=== PATIENT | male | born 1940 | race Caucasian/White ===

== ENCOUNTER → 2017-11-13 | Day surgery (SDC) | payer MEDICARE ==
[~2017-11-13] MED LIST: Glycopyrrolate 0.2 MG/ML SDV IVPUSH ONE; Lactated Ringers 1,000 ML IV SCH; Propofol 200 MG/20 ML SDV IV ONE
--- NOTE | 2017-11-16 10:34 | OR ---
DATE OF OPERATION: 11/13/2017 PREOPERATIVE DIAGNOSIS: 1. GASTROESOPHAGEAL REFLUX DISEASE. 2. FOLLOWUP POLYPS. POSTOPERATIVE DIAGNOSIS: 1. GASTROESOPHAGEAL REFLUX DISEASE. 2. FOLLOWUP POLYPS. SURGEON: Garth Perez MD PROCEDURE: 1. ESOPHAGOGASTRODUODENOSCOPY WITH BIOPSIES X2, BHAVESH. 2. FULL-LENGTH COLONOSCOPY WITH SNARE POLYPECTOMY X1. ANESTHESIA: BISQUE KILN PLACER. COMPLICATIONS: None. SPECIMEN: 1. Antral biopsy x2. 2. BHAVESH. 3. Sigmoid polyp. FINDINGS: 1. Full-length EGD. 2. Chronic antral gastritis without ulceration. 3. Small hiatal hernia with reflux. No esophagitis or Puente's changes. 4. Full-length colonoscopy. 5. [id number] sigmoid diverticulosis. 6. Tubular adenoma sigmoid less than 0.5 cm. RECOMMENDATIONS: 1. Followup colonoscopy in 5 years. 2. Medical followup for patient's reflux. INDICATIONS: The patient has been having some occasional reflux, and he is due for routine colonoscopy. Dr. Gross sent him for a scope. DESCRIPTION OF PROCEDURE: The patient was prepped and draped, placed in the left lateral decubitus position. A lubricated Olympus gastroscope was inserted over a bit and advanced to cricopharyngeus area and easily intubated in the esophagus. Esophageal lining was benign in its entire course. The Z-line was crisp around 38 and 0.5 cm. Small hiatal hernia was present with some minimal spontaneous reflux. No distal esophagitis, stricturing, ulceration, or Puente's changes seen. The scope was advanced into the stomach through the pylorus into the second portion of the duodenum. This and the duodenal bulb were benign. The scope was brought back into the stomach and retroflexed. The upper fundus and cardia were completely unremarkable. Upon straightening, I could find no signs of any polyps, lesions, or ulcerations in the stomach. The antrum had some chronic gastritis appearance without any acute ulcerations or erosions. Two biopsies were taken along with a BHAVESH test. Air was suctioned from the stomach and the scope removed without complication. A lubricated Olympus colonoscope was then inserted and easily advanced to the cecum. Direct visualization of the ileocecal valve and appendiceal orifice was accomplished. The bowel prep was excellent. Upon withdrawal of the scope, the right transverse and descending colons were unremarkable. The patient has prominent diverticula in the sigmoid and rectosigmoid area, mild to moderate in severity. One small polyp was found around 40 cm and removed with a snare and suctioned a polyp trap #1. It is typical tubular adenoma. The rectal vault was unremarkable. Retroflexion showed no perineal lesions. Air was suctioned. The scope was removed without complication. CHRIS /[id number]
== END ==
LOC: CC.SDS 09:03
PROVIDERS: ATTEND Family Medicine
DX: D12.5 Benign neoplasm of sigmoid colon (principal); K29.50 Unspecified chronic gastritis without bleeding; K57.30 Diverticulosis of large intestine without perforation or abscess without bleeding; K44.9 Diaphragmatic hernia without obstruction or gangrene; K21.9 Gastro-esophageal reflux disease without esophagitis; I10 Essential (primary) hypertension; I25.10 Atherosclerotic heart disease of native coronary artery without angina pectoris; E78.5 Hyperlipidemia, unspecified; E55.9 Vitamin D deficiency, unspecified; N40.0 Benign prostatic hyperplasia without lower urinary tract symptoms; Z86.010 Personal history of colon polyps; Z87.891 Personal history of nicotine dependence; Z79.82 Long term (current) use of aspirin; Z79.899 Other long term (current) drug therapy
CPT/HCPCS: 87081; 88305; 88342; J2704; J7120

== ENCOUNTER 2021-01-10 16:15 | Observation (INO) | payer MEDICARE, OTHER ==
[2021-01-10] MEDS ORDERED: Sodium Chloride 0.9% 10 ML Syringe FLUSH PRN (16:44)
[2021-01-10 17:07] LABS: CHLORIDE,CL 103 mEq/L (98-106); SODIUM,NA 142 mEq/L (136-145)
--- NOTE | 2021-01-10 17:09 | EDM.PDOC ---
ED HPI GENERAL MEDICAL PROBLEM - General Chief Complaint: General Stated Complaint: WEAKNESS OF KNEES/DRY HEAVES/DIZZINESS Time Seen by Provider: 01/10/21 16:30 Source of Information: Reports: Patient History Limitations: Reports: No Limitations - History of Present Illness INITIAL COMMENTS - FREE TEXT/NARRATIVE: States that he was feeling fine until this morning when he started to get dizzy and then dry heaving and now feels like he is tingling all over. He relates he has had these in the past but it has been awhile. He states that he has not had any unilateral weakness. No facial drooping noted. Feels better if he is just laying still. With movement he does get the dry heaves. He relates that he hasn't been able to get anything to stay down all after noon. He did feel unsteady on his feet so did come in by EMS to be evaluated. Onset: Today Location: Reports: Head Associated Symptoms: Reports: Nausea/Vomiting - Related Data Allergies Allergy/AdvReac Type Severity Reaction Status Date / Time No Known Allergies Allergy Verified 11/13/17 09:22 Home Meds: Home Meds Aspirin [Adult Low Dose Aspirin EC] 81 mg PO DAILY 11/09/17 [History] Cholecalciferol (Vitamin D3) [Vitamin D3] 3,000 unit PO DAILY 11/09/17 [History] Cyanocobalamin (Vitamin B12) [Vitamin B12] 1,000 mcg PO DAILY 11/09/17 [History] Metoprolol Tartrate 25 mg PO DAILY 11/09/17 [History] Multivitamin [Daily Multiple Vitamin] 1 tab PO DAILY 11/09/17 [History] Omeprazole 20 mg PO DAILY 11/09/17 [History] Rosuvastatin Calcium 10 mg PO DAILY 11/09/17 [History] Past Medical History Cardiovascular History: Reports: CAD, Hypertension - Past Surgical History Cardiovascular Surgical History: Reports: Coronary Artery Bypass GI Surgical History: Reports: Hernia Repair/Other, Other (See Below) (colon surgery) Social & Family History - Tobacco Use Tobacco Use Status *Q: Never Tobacco User ED ROS GENERAL - Review of Systems Review Of Systems: See Below Constitutional: Reports: Weakness. Denies: Fever, Chills HEENT: Reports: No Symptoms Respiratory: Reports: No Symptoms. Denies: Cough Cardiovascular: Denies: Chest Pain GI/Abdominal: Reports: Nausea (dry heaves) Neurological: Reports: Dizziness, Tingling (to extremities.). Denies: Headache ED EXAM, GENERAL - Physical Exam Exam: See Below Exam Limited By: No Limitations General Appearance: Alert, WD/WN, Mild Distress Eye Exam: Bilateral Eye: PERRL Ear Exam: Bilateral Ear: Canal Normal, TM normal Nose: Normal Inspection Throat/Mouth: Normal Inspection, Normal Oropharynx, Normal Voice Head: Atraumatic, Normocephalic Neck: Normal Inspection, Supple, Non-Tender Respiratory/Chest: No Respiratory Distress, Lungs Clear, Normal Breath Sounds Cardiovascular: Normal Peripheral Pulses, Regular Rate, Rhythm, No Edema Back Exam: Normal Inspection Extremities: No Pedal Edema, Normal Capillary Refill Neurological: Alert, Oriented, CN II-XII Intact, Normal Cognition Psychiatric: Normal Affect, Normal Mood Skin Exam: Warm, Dry, Intact Course - Orders/Labs/Meds Orders: Active Orders 24 hr Category Date Time Status Peripheral IV Care [RC] . DIRECTED Care 01/10/21 16:44 Active Head wo Cont [CT] Stat Exams 01/10/21 16:38 Taken UA RFX EMERSON AND CULT IF INDIC [URIN] Urgent Lab 01/10/21 16:39 Ordered Aspirin [Adult Low Dose Aspirin EC] Med 01/11/21 08:00 Active 81 mg PO DAILY Cholecalciferol (Vitamin D3) [Vitamin D3] Med 01/11/21 08:00 Active 3,000 unit PO DAILY Cyanocobalamin (Vitamin B12) [Vitamin B12] Med 01/11/21 08:00 Active 1,000 mcg PO DAILY Metoprolol Tartrate [Metoprolol Tartrate] Med 01/11/21 08:00 Active 25 mg PO DAILY Multivitamin [Daily Multiple Vitamin] Med 01/11/21 08:00 Active 1 tab PO DAILY Omeprazole [Omeprazole] Med 01/11/21 08:00 Active 20 mg PO DAILY Ondansetron [Zofran] Med 01/10/21 17:01 Active 4 mg IVPUSH Q6H PRN Rosuvastatin Calcium [Rosuvastatin Calcium] Med 01/11/21 08:00 Active 10 mg PO DAILY Sodium Chloride 0.9% [Saline Flush] Med 01/10/21 16:44 Active 10 ml FLUSH ASDIRECTED PRN Peripheral IV Insertion Adult [OM.PC] Routine Oth 01/10/21 16:44 Ordered Medication Orders Non-Formulary Medication (Metoprolol Tartrate [Metoprolol Tartrate]) 25 mg PO DAILY [facility] Non-Formulary Medication (Rosuvastatin Calcium [Rosuvastatin Calcium]) 10 mg PO DAILY [facility] Non-Formulary Medication (Omeprazole [Omeprazole]) 20 mg PO DAILY [facility] Non-Formulary Medication (Aspirin [Adult Low Dose Aspirin Ec]) 81 mg PO DAILY [facility] Non-Formulary Medication (Cholecalciferol (Vitamin D3) [Vitamin D3]) 3,000 unit PO DAILY [facility] Non-Formulary Medication (Cyanocobalamin (Vitamin B12) [Vitamin B12]) 1,000 mcg PO DAILY [facility] Non-Formulary Medication (Multivitamin [Daily Multiple Vitamin]) 1 tab PO DAILY [facility] Ondansetron HCl (Ondansetron 4 Mg/2 Ml Sdv) 4 mg IVPUSH Q6H PRN PRN Reason: Nausea Last Admin: 01/10/21 17:13 Dose: 4 mg Documented by: GOMEZ Sodium Chloride (Sodium Chloride 0.9% 10 Ml Syringe) 10 ml FLUSH ASDIRECTED PRN PRN Reason: Keep Vein Open Labs: Laboratory Tests 01/10/21 01/10/21 Range/Units 16:32 16:34 WBC 12.7 H (4.0-11.0) 10^3/uL RBC 4.91 (4.50-6.00) x10^6/uL Hgb 14.9 (14.0-18.0) g/dL Hct 43.7 (42.0-52.0) % MCV 89.0 (83.0-97.0) fL MCH 30.3 (27.0-32.0) pg MCHC 34.1 (32.0-36.0) g/dL RDW Coeff of Rosita 12.4 (11.0-15.0) % Plt Count 267 (150-400) 10^3/uL Immature Gran % (Auto) 0.2 (0.0-4.9) % Neut % (Auto) 87.0 H (41-71) % Lymph % (Auto) 9.2 L (24-44) % [place] % (Auto) 3.2 (0-10) % Eos % (Auto) 0.2 (0-6) % Baso % (Auto) 0.2 (0-1) % Neut # (Auto) 11.00 H (1.80-8.00) x10^3/uL Lymph # (Auto) 1.17 (0.60-5.00) 10^3/uL [place] # (Auto) 0.41 (0.00-1.50) 10^3/uL Eos # (Auto) 0.03 (0.00-1.50) 10^3/uL Baso # (Auto) 0.03 (0.00-0.50) 10^3/uL Immature Gran # (Auto) 0.02 (0.00-0.49) 10^3/uL Sodium 142 (136-145) mEq/L Potassium 3.4 L (3.5-5.0) mEq/L Chloride 103 (98-106) mEq/L Carbon Dioxide 23 (21-32) mmol/L BUN 23 H (7-18) mg/dL Creatinine 1.2 (0.7-1.3) mg/dL Est Cr Clr Drug Dosing TNP Estimated GFR (MDRD) 58 L (>=60) mL/min Glucose 156 H D (75-99) mg/dL Calcium 8.8 (8.4-10.1) mg/dL Total Bilirubin 0.6 (0.0-1.0) mg/dL AST 22 (15-37) U/L ALT 31 (12-78) U/L Alkaline Phosphatase 59 (46-116) U/L Creatine Kinase 66 (35-232) U/L Troponin I < 0.017 (0.00-0.06) ng/mL NT-Pro-B Natriuret Pep 244 (0-1000) pg/mL Total Protein 7.5 (6.4-8.2) g/dL Albumin 4.0 (3.4-5.0) g/dL Meds: Medications Generic Name Dose Route Start Last Admin Trade Name Freq PRN Reason Stop Dose Admin Non-Formulary Medication 25 mg 01/11/21 08:00 Metoprolol Tartrate [Metoprolol Tartrate] PO DAILY [facility] Non-Formulary Medication 10 mg 01/11/21 08:00 Rosuvastatin Calcium [Rosuvastatin Calcium] PO DAILY [facility] Non-Formulary Medication 20 mg 01/11/21 08:00 Omeprazole [Omeprazole] PO DAILY [facility] Non-Formulary Medication 81 mg 01/11/21 08:00 Aspirin [Adult Low Dose Aspirin Ec] PO DAILY [facility] Non-Formulary Medication 3,000 unit 01/11/21 08:00 Cholecalciferol (Vitamin D3) [Vitamin D3] PO DAILY [facility] Non-Formulary Medication 1,000 mcg 01/11/21 08:00 Cyanocobalamin (Vitamin B12) [Vitamin B12] PO DAILY [facility] Non-Formulary Medication 1 tab 01/11/21 08:00 Multivitamin [Daily Multiple Vitamin] PO DAILY [facility] Ondansetron HCl 4 mg 01/10/21 17:01 01/10/21 17:13 Ondansetron 4 Mg/2 Ml Sdv IVPUSH 4 mg Q6H PRN Administration Nausea Sodium Chloride 10 ml 01/10/21 16:44 Sodium Chloride 0.9% 10 Ml Syringe FLUSH ASDIRECTED PRN Keep Vein Open - Re-Assessments/Exams Free Text/Narrative Re-Assessment/Exam: 01/10/21 17:15 Dizziness is improved when laying still. Did have dry heaves when he sat up and went to CT scan but that has improved. He states that the tingling he had in his extremities when this started has resolved. CT of head is negative. Departure - Departure Time of Disposition: 17:36 Disposition: Refer to Observation Condition: Fair Clinical Impression: Dizziness, Dry heaves - Discharge Information *PRESCRIPTION DRUG MONITORING PROGRAM REVIEWED*: Not Applicable *COPY OF PRESCRIPTION DRUG MONITORING REPORT IN PATIENT SAWYER: Not Applicable Forms: ED Department Discharge - Problem List & Annotations (1) Dizziness SNOMED Code(s): 185851558, 784530663 Code(s): R42 - DIZZINESS AND GIDDINESS Status: Acute Priority: High (2) Dry heaves SNOMED Code(s): 12186007 Code(s): R11.10 - VOMITING, UNSPECIFIED Status: Acute Priority: High - Problem List Review Problem List Initiated/Reviewed/Updated: Yes - My Orders Last 24 Hours: My Active Orders 01/10/21 16:38 Head wo Cont [CT] Stat 01/10/21 16:39 UA RFX EMERSON AND CULT IF INDIC [URIN] Urgent 01/10/21 16:44 Peripheral IV Care [RC] . DIRECTED Sodium Chloride 0.9% [Saline Flush] 10 ml FLUSH ASDIRECTED PRN Peripheral IV Insertion Adult [OM.PC] Routine 01/10/21 17:01 Ondansetron [Zofran] 4 mg IVPUSH Q6H PRN 01/11/21 08:00 Aspirin [Adult Low Dose Aspirin EC] 81 mg PO DAILY Cholecalciferol (Vitamin D3) [Vitamin D3] 3,000 unit PO DAILY Cyanocobalamin (Vitamin B12) [Vitamin B12] 1,000 mcg PO DAILY Metoprolol Tartrate [Metoprolol Tartrate] 25 mg PO DAILY Multivitamin [Daily Multiple Vitamin] 1 tab PO DAILY Omeprazole [Omeprazole] 20 mg PO DAILY Rosuvastatin Calcium [Rosuvastatin Calcium] 10 mg PO DAILY - Assessment/Plan Admission H&P: Please use this note as an admission H&P Last 24 Hours: My Active Orders 01/10/21 16:38 Head wo Cont [CT] Stat 01/10/21 16:39 UA RFX EMERSON AND CULT IF INDIC [URIN] Urgent 01/10/21 16:44 Peripheral IV Care [RC] . DIRECTED Sodium Chloride 0.9% [Saline Flush] 10 ml FLUSH ASDIRECTED PRN Peripheral IV Insertion Adult [OM.PC] Routine 01/10/21 17:01 Ondansetron [Zofran] 4 mg IVPUSH Q6H PRN 01/11/21 08:00 Aspirin [Adult Low Dose Aspirin EC] 81 mg PO DAILY Cholecalciferol (Vitamin D3) [Vitamin D3] 3,000 unit PO DAILY Cyanocobalamin (Vitamin B12) [Vitamin B12] 1,000 mcg PO DAILY Metoprolol Tartrate [Metoprolol Tartrate] 25 mg PO DAILY Multivitamin [Daily Multiple Vitamin] 1 tab PO DAILY Omeprazole [Omeprazole] 20 mg PO DAILY Rosuvastatin Calcium [Rosuvastatin Calcium] 10 mg PO DAILY Plan: Due to the dizziness with any movement will admit to observation at this time. As he is dry heaving and has not been able to keep anything down all day will st art an IV and rehydrate. If needed will get PT consult tomorrow for canolith repositioning. Will start meclizine tonight and use Zofran for the nausea as needed.
[2021-01-10] MEDS: Ondansetron 4 MG/2 ML SDV IVPUSH PRN (17:13)
[2021-01-10] MEDS ORDERED: Pantoprazole 40 MG Vial IVPUSH SCH (17:45)
[2021-01-10] MEDS: Sodium Chloride 0.9% 1,000 ML IV SCH (19:27)
[2021-01-10] MEDS ORDERED: Meclizine 12.5 MG Tab PO SCH (19:45)
[2021-01-11] MEDS: Sodium Chloride 0.9% 1,000 ML IV SCH (07:48)
[2021-01-11] MEDS: Pantoprazole 40 MG Vial IVPUSH SCH ×2 (07:49→20:10)
[2021-01-11] MEDS: Meclizine 12.5 MG Tab PO SCH ×3 (07:49→23:43)
[2021-01-11] MEDS ORDERED: Non-Formulary Medication 1 Each (Cyanocobalamin (Vitamin B12) [Vitamin B12] 1,000 MCG Tabl PO SCH (08:00)
[2021-01-11] MEDS ORDERED: MULTIVITAMIN PO SCH (08:00)
[2021-01-11] MEDS ORDERED: METOPROLOL TARTRATE 50 MG PO SCH (08:00)
[2021-01-11] MEDS ORDERED: Enoxaparin 30 MG/0.3 ML Syringe SUBCUT SCH (08:00)
[2021-01-11] MEDS ORDERED: [UNRECOGNIZED DRUG - OTHER] PO SCH (08:00)
[2021-01-11] MEDS ORDERED: Metoprolol Tartrate 25 MG Tab PO SCH (08:00)
[2021-01-11] MEDS ORDERED: OMEPRAZOLE PO SCH (08:00)
[2021-01-11] MEDS ORDERED: Non-Formulary Medication 1 Each (Aspirin [Adult Low Dose Aspirin Ec] 81 MG Tablet.Dr) PO SCH (08:00)
[2021-01-11] MEDS ORDERED: ROSUVASTATIN CALCIUM 10 MG PO SCH ×3 (08:00→20:00)
[2021-01-11] MEDS ORDERED: CHOLECALCIFEROL 3000 UNIT PO SCH (08:00)
[2021-01-11] MEDS: Metoprolol Tartrate 50 MG Tab **PTOM PO SCH ×2 (08:29→20:10)
[2021-01-11 12:18] LABS: CHLORIDE,CL 108 mEq/L (98-106); SODIUM,NA 143 mEq/L (136-145)
[2021-01-11] MEDS: Enoxaparin 30 MG/0.3 ML Syringe SUBCUT SCH (12:58)
--- NOTE | 2021-01-11 18:13 | PCM.PN ---
- General Info Date of Service: 01/11/21 Admission Dx/Problem (Free Text): Dizziness Subjective Update: Maximilian is an 80 yo male who was admitted to the hospital yesterday with dizziness. He started to get dizzy with acute onset yesterday morning. Pt started dry heaving and had tingling sensation all over. Admitted it has happened in the past but not for quite some time. If he lay down and not move it would improve. Every time he would start moving he would get the dry heaves. He states this morning he is feeling a lot better. Nursing staff did admit to dizziness with ambulation. Physical therapy was ordered for canalith repositioning but hasn't been completed yet. - Review of Systems General: Reports: No Symptoms HEENT: Reports: No Symptoms Cardiovascular: Reports: No Symptoms Gastrointestinal: Denies: Diarrhea, Nausea, Vomiting Genitourinary: Reports: No Symptoms Musculoskeletal: Reports: No Symptoms Skin: Reports: No Symptoms Neurological: Reports: Dizziness Psychiatric: Reports: No Symptoms - Patient Data Vitals - Most Recent: Last Vital Signs Temp 97.5 F 01/11/21 16:00 Pulse 64 01/11/21 16:00 Resp 20 01/11/21 16:00 BP 138/74 01/11/21 16:00 Pulse Ox 95 01/11/21 16:00 Weight - Most Recent: 171 lb 4.8 oz I&O - Last 24 Hours: Intake & Output 01/11/21 01/11/21 01/11/21 06:59 14:59 22:59 Intake Total 926 Balance 926 Lab Results Last 24 Hours: Laboratory Results - last 24 hr 01/10/21 01/11/21 01/11/21 Range/Units 16:39 11:54 11:54 WBC 12.2 H (4.0-11.0) 10^3/uL RBC 4.48 L (4.50-6.00) x10^6/uL Hgb 13.6 L (14.0-18.0) g/dL Hct 40.6 L (42.0-52.0) % MCV 90.6 (83.0-97.0) fL MCH 30.4 (27.0-32.0) pg MCHC 33.5 (32.0-36.0) g/dL RDW Coeff of Rosita 13.0 (11.0-15.0) % Plt Count 262 (150-400) 10^3/uL Immature Gran % (Auto) 0.2 (0.0-4.9) % Neut % (Auto) 69.6 (41-71) % Lymph % (Auto) 22.7 L (24-44) % [place] % (Auto) 6.6 (0-10) % Eos % (Auto) 0.7 (0-6) % Baso % (Auto) 0.2 (0-1) % Neut # (Auto) 8.49 H (1.80-8.00) x10^3/uL Lymph # (Auto) 2.76 (0.60-5.00) 10^3/uL [place]eller # (Auto) 0.80 (0.00-1.50) 10^3/uL Eos # (Auto) 0.08 (0.00-1.50) 10^3/uL Baso # (Auto) 0.03 (0.00-0.50) 10^3/uL Immature Gran # (Auto) 0.02 (0.00-0.49) 10^3/uL Sodium 143 (136-145) mEq/L Potassium 3.9 (3.5-5.0) mEq/L Chloride 108 H (98-106) mEq/L Carbon Dioxide 25 (21-32) mmol/L BUN 20 H (7-18) mg/dL Creatinine 1.0 (0.7-1.3) mg/dL Est Cr Clr Drug Dosing 52.28 mL/min Estimated GFR (MDRD) > 60 (>=60) mL/min Glucose 96 D (75-99) mg/dL Calcium 8.1 L (8.4-10.1) mg/dL TSH, Ultra Sensitive 0.54 (0.36-5.60) uIU/mL Urine Color Yellow (YELLOW) Urine Appearance Cloudy (CLEAR) Urine pH 8.5 H (4.5-8.0) Ur Specific [place] 1.020 (1.003-1.020) Urine Protein 30 H (NEGATIVE) mg/dL Urine Glucose (UA) Negative (NEGATIVE) mg/dL Urine Ketones 40 H (NEGATIVE) mg/dL Urine Occult Blood Negative (NEGATIVE) Urine Nitrite Negative (NEGATIVE) Urine Bilirubin Negative (NEGATIVE) Urine Urobilinogen 0.2 (0.2-1.0) EU/dL Ur Leukocyte Esterase Negative (NEGATIVE) Urine RBC 0-5 (0-5) /HPF Urine WBC 0-5 (0-5) /HPF Ur Squamous Epith Cells Few H (NOT SEEN) /HPF Amorphous Sediment Many H (NOT SEEN) /HPF Urine Mucus Many H (NOT SEEN) /HPF Med Orders - Current: Current Medications Enoxaparin Sodium (Enoxaparin 30 Mg/0.3 Ml Syringe) 30 mg SUBCUT Q24H [facility] Last Admin: 01/11/21 12:58 Dose: 30 mg Documented by: Sodium Chloride (Normal Saline) 1,000 mls @ 75 mls/hr IV ASDIRECTED [facility] Last Admin: 01/11/21 07:48 Dose: 75 mls/hr Documented by: Meclizine HCl (Meclizine 12.5 Mg Tab) 12.5 mg PO Q8H [facility] Last Admin: 01/11/21 16:10 Dose: 12.5 mg Documented by: Metoprolol Tartrate (Metoprolol Tartrate 50 Mg Tab Ptom) 25 mg PO BID [facility] Last Admin: 01/11/21 08:29 Dose: 25 mg Documented by: Rosuvastatin Calcium ] 10 Mg Tablet Ptom 0 mg PO BEDTIME [facility] Ondansetron HCl (Ondansetron 4 Mg/2 Ml Sdv) 4 mg IVPUSH Q6H PRN PRN Reason: Nausea Last Admin: 01/10/21 17:13 Dose: 4 mg Documented by: Pantoprazole Sodium (Pantoprazole 40 Mg Vial) 40 mg IVPUSH Q12H [facility] Last Admin: 01/11/21 07:49 Dose: 40 mg Documented by: Sodium Chloride (Sodium Chloride 0.9% 10 Ml Syringe) 10 ml FLUSH ASDIRECTED PRN PRN Reason: Keep Vein Open Discontinued Medications Enoxaparin Sodium (Enoxaparin 30 Mg/0.3 Ml Syringe) 30 mg SUBCUT BID [facility] Meclizine HCl (Meclizine 12.5 Mg Tab) 12.5 mg PO Q8H [facility] Last Admin: 01/10/21 20:39 Dose: 12.5 mg Documented by: Metoprolol Tartrate (Metoprolol Tartrate 25 Mg Tab) 25 mg PO DAILY [facility] Non-Formulary Medication (Metoprolol Tartrate [Metoprolol Tartrate]) 25 mg PO DAILY [facility] Non-Formulary Medication (Rosuvastatin Calcium [Rosuvastatin Calcium]) 10 mg PO DAILY [facility] Last Admin: 01/11/21 11:46 Dose: Not Given Documented by: Non-Formulary Medication (Omeprazole [Omeprazole]) 20 mg PO DAILY [facility] Non-Formulary Medication (Aspirin [Adult Low Dose Aspirin Ec]) 81 mg PO DAILY [facility] Non-Formulary Medication (Cholecalciferol (Vitamin D3) [Vitamin D3]) 3,000 unit PO DAILY [facility] Non-Formulary Medication (Cyanocobalamin (Vitamin B12) [Vitamin B12]) 1,000 mcg PO DAILY [facility] Non-Formulary Medication (Multivitamin [Daily Multiple Vitamin]) 1 tab PO DAILY [facility] Rosuvastatin Calcium ] 10 Mg Tablet Ptom 0 mg PO DAILY [facility] Last Admin: 01/11/21 09:11 Dose: Not Given Documented by: Pantoprazole Sodium (Pantoprazole 40 Mg Vial) 40 mg IVPUSH Q12H [facility] Last Admin: 01/10/21 19:26 Dose: 40 mg Documented by: - Exam General: Alert, Oriented Lungs: Clear to Auscultation, Normal Respiratory Effort Cardiovascular: Regular Rate, Regular Rhythm GI/Abdominal Exam: Normal Bowel Sounds, Soft, Non-Tender Skin: Warm, Dry, Intact Neurological: No New Focal Deficit, Normal Speech, Normal Tone, Cranial Nerves Intact Psy/Mental Status: Alert, Normal Affect, Normal Mood - Patient Data Lab Results Last 24 hrs: Laboratory Results - last 24 hr 01/10/21 01/11/21 01/11/21 Range/Units 16:39 11:54 11:54 WBC 12.2 H (4.0-11.0) 10^3/uL RBC 4.48 L (4.50-6.00) x10^6/uL Hgb 13.6 L (14.0-18.0) g/dL Hct 40.6 L (42.0-52.0) % MCV 90.6 (83.0-97.0) fL MCH 30.4 (27.0-32.0) pg MCHC 33.5 (32.0-36.0) g/dL RDW Coeff of Rosita 13.0 (11.0-15.0) % Plt Count 262 (150-400) 10^3/uL Immature Gran % (Auto) 0.2 (0.0-4.9) % Neut % (Auto) 69.6 (41-71) % Lymph % (Auto) 22.7 L (24-44) % [place]eller % (Auto) 6.6 (0-10) % Eos % (Auto) 0.7 (0-6) % Baso % (Auto) 0.2 (0-1) % Neut # (Auto) 8.49 H (1.80-8.00) x10^3/uL Lymph # (Auto) 2.76 (0.60-5.00) 10^3/uL Teller # (Auto) 0.80 (0.00-1.50) 10^3/uL Eos # (Auto) 0.08 (0.00-1.50) 10^3/uL Baso # (Auto) 0.03 (0.00-0.50) 10^3/uL Immature Gran # (Auto) 0.02 (0.00-0.49) 10^3/uL Sodium 143 (136-145) mEq/L Potassium 3.9 (3.5-5.0) mEq/L Chloride 108 H (98-106) mEq/L Carbon Dioxide 25 (21-32) mmol/L BUN 20 H (7-18) mg/dL Creatinine 1.0 (0.7-1.3) mg/dL Est Cr Clr Drug Dosing 52.28 mL/min Estimated GFR (MDRD) > 60 (>=60) mL/min Glucose 96 D (75-99) mg/dL Calcium 8.1 L (8.4-10.1) mg/dL TSH, Ultra Sensitive 0.54 (0.36-5.60) uIU/mL Urine Color Yellow (YELLOW) Urine Appearance Cloudy (CLEAR) Urine pH 8.5 H (4.5-8.0) Ur Specific [place] 1.020 (1.003-1.020) Urine Protein 30 H (NEGATIVE) mg/dL Urine Glucose (UA) Negative (NEGATIVE) mg/dL Urine Ketones 40 H (NEGATIVE) mg/dL Urine Occult Blood Negative (NEGATIVE) Urine Nitrite Negative (NEGATIVE) Urine Bilirubin Negative (NEGATIVE) Urine Urobilinogen 0.2 (0.2-1.0) EU/dL Ur Leukocyte Esterase Negative (NEGATIVE) Urine RBC 0-5 (0-5) /HPF Urine WBC 0-5 (0-5) /HPF Ur Squamous Epith Cells Few H (NOT SEEN) /HPF Amorphous Sediment Many H (NOT SEEN) /HPF Urine Mucus Many H (NOT SEEN) /HPF Result Diagrams: 01/11/21 11:54 01/11/21 11:54 Sepsis Event Note - Evaluation Sepsis Screening Result: No Definite Risk - Focused Exam Vital Signs: Vital Signs Temp Pulse Pulse Resp BP BP Pulse Ox 01/11/21 16:00 97.5 F 64 20 138/74 95 01/11/21 12:00 98.6 F 72 20 135/69 95 01/11/21 08:29 82 140/69 01/11/21 08:00 97.7 F 82 16 140/69 96 - Problem List & Annotations (1) Dizziness SNOMED Code(s): 424014559, 296352717 Code(s): R42 - DIZZINESS AND GIDDINESS Status: Acute Priority: High Current Visit: No (2) Dry heaves SNOMED Code(s): 20976243 Code(s): R11.10 - VOMITING, UNSPECIFIED Status: Resolved Priority: High Current Visit: No - Problem List Review Problem List Initiated/Reviewed/Updated: Yes - My Orders Last 24 Hours: My Active Orders 01/11/21 14:29 Carotid Comp [US] Routine - Plan Plan:: Patient appears to be doing well. We did repeat laboratory work this morning, which was unremarkable. Will have physical therapy see patient today for canalith repositioning. Reviewed patient's chart and back in 2016 he did have carotid duplex with estimation of 16-49% blockage. Will repeat since it has been 5 years. Patient verbalized understanding and will see how patient is doing in am.
[2021-01-11] MEDS: Ondansetron 4 MG/2 ML SDV IVPUSH PRN (20:10)
[2021-01-12] MEDS: Metoprolol Tartrate 50 MG Tab **PTOM PO SCH (07:59)
[2021-01-12] MEDS: Meclizine 12.5 MG Tab PO SCH (07:59)
[2021-01-12] MEDS: Pantoprazole 40 MG Vial IVPUSH SCH (08:00)
--- NOTE | 2021-01-12 11:56 | PCM.DCSUM1 ---
Discharge Summary - Hospital Course Free Text/Narrative:: Maximilian is an 80 year old male who presented to the ER with complaints of dizziness, dry heaves and feeling tingling all over. 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 No other neurological symptoms. Does admit that the symptoms are all worse with movement. Nausea preventing him from eating well. ER work up included labs, CT scan essentially unremarkable. Continued to have dizziness with head movements so was admitted and started on Meclizine. Zofran for nausea. IV fluids. Diagnosis: Stroke: No Modified Hampton Scale: No Symptoms at All Modified Hampton Scale Score: 0 - Discharge Data Discharge Date: 01/12/21 Discharge Disposition: Home, Self-Care 01 Condition: Good - Referral to Home Health Primary Care Physician: Garth Peerz MD - Discharge Diagnosis/Problem(s) (1) Dizziness SNOMED Code(s): 537422301, [id number] ICD Code: R42 - DIZZINESS AND GIDDINESS Status: Acute Priority: High Current Visit: No - Patient Summary/Data Complications: none Consults: Consultations 01/10/21 23:20 Consult to Physical Therapy [PT Evaluation and Treatment] [CONS] Routine Hospital Course: Patient admitted due to vertigo. Was feeling better yesterday except when up ambulating, would still get mild dizziness. This am, denies any further dizziness. Had canalith repositioning yesterday. Ambulating without any complaints today. CT scan of head was negative. Had carotid ultrasound yesterday which showed less than 50% occlusion. He does report intermittent issues with chest pain at times, none since admission. Does also get headaches, CT scan negative. Will need further follow up for these concerns if persist. Discharge home on Meclizine. Follow up with Dr. Perez in 10 days - Patient Instructions Diet: Usual Diet as Tolerated Activity: As Tolerated - Discharge Plan *PRESCRIPTION DRUG MONITORING PROGRAM REVIEWED*: Not Applicable *COPY OF PRESCRIPTION DRUG MONITORING REPORT IN PATIENT SAWYER: Not Applicable Prescriptions/Med Rec: Meclizine [Antivert] 12.5 mg PO Q8H #60 tablet Home Medications: Home Meds Aspirin [Adult Low Dose Aspirin EC] 81 mg PO DAILY 11/09/17 [History] Cholecalciferol (Vitamin D3) [Vitamin D3] 3,000 unit PO DAILY 11/09/17 [History] Cyanocobalamin (Vitamin B12) [Vitamin B12] 1,000 mcg PO DAILY 11/09/17 [History] Metoprolol Tartrate 25 mg PO BID 11/09/17 [History] Multivitamin [Daily Multiple Vitamin] 1 tab PO DAILY 11/09/17 [History] Omeprazole 20 mg PO DAILY 11/09/17 [History] Rosuvastatin Calcium 10 mg PO DAILY 11/09/17 [History] Meclizine [Antivert] 12.5 mg PO Q8H #60 tablet 01/12/21 [Rx] Forms: ED Department Discharge Referrals: Garth Perez MD [Primary Care Provider] - - Discharge Summary/Plan Comment DC Time >30 min.: No - General Info Date of Service: 01/12/21 Admission Dx/Problem (Free Text: Dizziness Functional Status: Reports: Pain Controlled, Tolerating Diet, Ambulating - Review of Systems General: Denies: Fever, Weakness, Fatigue, Malaise HEENT: Denies: Ear Pain, Sinus Congestion, Rhinitis, Visual Changes Pulmonary: Denies: Shortness of Breath Cardiovascular: Denies: Chest Pain, Edema, Lightheadedness Gastrointestinal: Denies: Abdominal Pain, Nausea, Vomiting Genitourinary: Reports: No Symptoms Musculoskeletal: Reports: No Symptoms Skin: Reports: No Symptoms Neurological: Reports: Dizziness - Patient Data Vitals - Most Recent: Last Vital Signs Temp 98.9 F 01/12/21 08:00 Pulse 68 01/12/21 08:00 Resp 20 01/12/21 08:00 BP 147/81 H 01/12/21 08:00 Pulse Ox 96 01/12/21 08:00 Weight - Most Recent: 171 lb 4.8 oz Lab Results - Last 24 hrs: Laboratory Results - last 24 hr 01/11/21 01/11/21 Range/Units 11:54 11:54 WBC 12.2 H (4.0-11.0) 10^3/uL RBC 4.48 L (4.50-6.00) x10^6/uL Hgb 13.6 L (14.0-18.0) g/dL Hct 40.6 L (42.0-52.0) % MCV 90.6 (83.0-97.0) fL MCH 30.4 (27.0-32.0) pg MCHC 33.5 (32.0-36.0) g/dL RDW Coeff of Rosita 13.0 (11.0-15.0) % Plt Count 262 (150-400) 10^3/uL Immature Gran % (Auto) 0.2 (0.0-4.9) % Neut % (Auto) 69.6 (41-71) % Lymph % (Auto) 22.7 L (24-44) % [place] % (Auto) 6.6 (0-10) % Eos % (Auto) 0.7 (0-6) % Baso % (Auto) 0.2 (0-1) % Neut # (Auto) 8.49 H (1.80-8.00) x10^3/uL Lymph # (Auto) 2.76 (0.60-5.00) 10^3/uL [place] # (Auto) 0.80 (0.00-1.50) 10^3/uL Eos # (Auto) 0.08 (0.00-1.50) 10^3/uL Baso # (Auto) 0.03 (0.00-0.50) 10^3/uL Immature Gran # (Auto) 0.02 (0.00-0.49) 10^3/uL Sodium 143 (136-145) mEq/L Potassium 3.9 (3.5-5.0) mEq/L Chloride 108 H (98-106) mEq/L Carbon Dioxide 25 (21-32) mmol/L BUN 20 H (7-18) mg/dL Creatinine 1.0 (0.7-1.3) mg/dL Est Cr Clr Drug Dosing 52.28 mL/min Estimated GFR (MDRD) > 60 (>=60) mL/min Glucose 96 D (75-99) mg/dL Calcium 8.1 L (8.4-10.1) mg/dL TSH, Ultra Sensitive 0.54 (0.36-5.60) uIU/mL Med Orders - Current: Current Medications Enoxaparin Sodium (Enoxaparin 30 Mg/0.3 Ml Syringe) 30 mg SUBCUT Q24H [facility] Last Admin: 01/11/21 12:58 Dose: 30 mg Documented by: Meclizine HCl (Meclizine 12.5 Mg Tab) 12.5 mg PO Q8H [facility] Last Admin: 01/12/21 07:59 Dose: 12.5 mg Documented by: Metoprolol Tartrate (Metoprolol Tartrate 50 Mg Tab Ptom) 25 mg PO BID [facility] Last Admin: 01/12/21 07:59 Dose: 25 mg Documented by: Rosuvastatin Calcium ] 10 Mg Tablet Ptom 0 mg PO BEDTIME [facility] Last Admin: 01/11/21 20:10 Dose: 10 mg Documented by: Ondansetron HCl (Ondansetron 4 Mg/2 Ml Sdv) 4 mg IVPUSH Q6H PRN PRN Reason: Nausea Last Admin: 01/11/21 20:10 Dose: 4 mg Documented by: Pantoprazole Sodium (Pantoprazole 40 Mg Vial) 40 mg IVPUSH Q12H [facility] Last Admin: 01/12/21 08:00 Dose: 40 mg Documented by: Sodium Chloride (Sodium Chloride 0.9% 10 Ml Syringe) 10 ml FLUSH ASDIRECTED PRN PRN Reason: Keep Vein Open Discontinued Medications Enoxaparin Sodium (Enoxaparin 30 Mg/0.3 Ml Syringe) 30 mg SUBCUT BID [facility] Sodium Chloride (Normal Saline) 1,000 mls @ 75 mls/hr IV ASDIRECTED [facility] Last Admin: 01/11/21 07:48 Dose: 75 mls/hr Documented by: Meclizine HCl (Meclizine 12.5 Mg Tab) 12.5 mg PO Q8H [facility] Last Admin: 01/10/21 20:39 Dose: 12.5 mg Documented by: Metoprolol Tartrate (Metoprolol Tartrate 25 Mg Tab) 25 mg PO DAILY [facility] Non-Formulary Medication (Metoprolol Tartrate [Metoprolol Tartrate]) 25 mg PO DAILY [facility] Non-Formulary Medication (Rosuvastatin Calcium [Rosuvastatin Calcium]) 10 mg PO DAILY [facility] Last Admin: 01/11/21 11:46 Dose: Not Given Documented by: Non-Formulary Medication (Omeprazole [Omeprazole]) 20 mg PO DAILY [facility] Non-Formulary Medication (Aspirin [Adult Low Dose Aspirin Ec]) 81 mg PO DAILY [facility] Non-Formulary Medication (Cholecalciferol (Vitamin D3) [Vitamin D3]) 3,000 unit PO DAILY [facility] Non-Formulary Medication (Cyanocobalamin (Vitamin B12) [Vitamin B12]) 1,000 mcg PO DAILY [facility] Non-Formulary Medication (Multivitamin [Daily Multiple Vitamin]) 1 tab PO DAILY [facility] Rosuvastatin Calcium ] 10 Mg Tablet Ptom 0 mg PO DAILY [facility] Last Admin: 01/11/21 09:11 Dose: Not Given Documented by: Pantoprazole Sodium (Pantoprazole 40 Mg Vial) 40 mg IVPUSH Q12H [facility] Last Admin: 01/10/21 19:26 Dose: 40 mg Documented by: - Exam General: Reports: Alert, Oriented HEENT: Reports: Mucous Membr. Moist/Fisk Neck: Reports: Supple Lungs: Reports: Clear to Auscultation, Normal Respiratory Effort Cardiovascular: Reports: Regular Rate, Regular Rhythm GI/Abdominal Exam: Normal Bowel Sounds, Soft, Non-Tender Extremities: Normal Inspection, No Pedal Edema Skin: Reports: Warm, Dry Neurological: Reports: No New Focal Deficit
[2021-01-12] MEDS: Enoxaparin 30 MG/0.3 ML Syringe SUBCUT SCH (12:57)
== END 2021-01-12 14:05 | disposition home or self-care (01) ==
LOC: CC.ED 16:15 → CC.MS 17:43
PROVIDERS: ADMIT Physician Assistant Medical; ATTEND Family Medicine
DX: R42 Dizziness and giddiness (principal); I25.10 Atherosclerotic heart disease of native coronary artery without angina pectoris; I10 Essential (primary) hypertension; R11.10 Vomiting, unspecified; Z95.1 Presence of aortocoronary bypass graft; Z79.82 Long term (current) use of aspirin; Z79.899 Other long term (current) drug therapy
CPT/HCPCS: 36415; 70450; 80048; 80053; 81001; 82550; 83880; 84443; 84484; 85025; 93005; 93880; 96372; 96374; 96375; 96376; 97112-GP; 99217; 99220; 99225; 99285-25; A9270-GY; C9113; G0378; J1650; J2405; J7030